=== PATIENT | male | born 1985 | race Hispanic/Latino ===

== ENCOUNTER 2021-02-08 06:29 | Emergency (ER) | payer SELFPAY ==
[2021-02-08] MEDS ORDERED: IBUPROFEN 200 MG TAB PO ONE (07:44)
[2021-02-08] MEDS ORDERED: LEVALBUTEROL 1.25 MG/3 ML NEB ONE (07:44)
[2021-02-08] MEDS ORDERED: dexAMETHasone 10 MG/ML VIAL ONE (07:44)
[2021-02-08] MEDS ORDERED: MAGNESIUM SULFATE 1 gm IVPB 1 GM/100 ML BAG IV ONE (07:44)
[2021-02-08 08:04] LABS: Absolute Lymphocytes (CBC) 0.8 K/uL (0.7-4.9); Basophils % 0.2 % (0-1.3); Hematocrit 41.7 % (39.6-49.0); Lymphocytes % 9.1 % (15.3-44.8); MPV 9.7 fL (7.6-11.3); RBC Red Blood Cell Count 4.91 M/uL (4.33-5.43)
[2021-02-08 08:11] LABS: BUN Blood Urea Nitrogen 11 mg/dL (7-18); Bicarbonate 28 mmol/L (21-32); Glucose Level 123 mg/dL (74-106); Potassium 3.9 mmol/L (3.5-5.1); Sodium Level 134 mmol/L (136-145)
--- NOTE | 2021-02-08 09:04 | RAD REPORT ---
EXAM DESCRIPTION: Devi Single View02/08/2021 8:42 am CLINICAL HISTORY: Shortness of breath COMPARISON: none FINDINGS: Moderate bilateral pulmonary opacities. Heart is normal size IMPRESSION: Moderate bilateral pulmonary opacities. This may indicate Covid pneumonia
--- NOTE | 2021-02-08 09:17 | ER ---
Nurse's Notes [facility] Name: Bhupendra Diaz Age: 35 yrs Sex: Male : 1985 Arrival Date: 02/08/2021 Time: 06:34 Bed 19 Private MD: Diagnosis: Coronavirus infection, unspecified Presentation: 02/08 06:42 Chief complaint: Patient states: he was diagnosed with COVID on Saturday but his bb symptoms are worsening with fever and coughing, pt doubling up when he coughs. Coronavirus screen: cough unrelated to allergies, fever, Client presents with at least one sign or symptom that may indicate coronavirus-19. Standard/surgical mask placed on the client. Client reports previous positive COVID test result. Ebola Screen: No symptoms or risks identified at this time. Initial Sepsis Screen: Does the patient meet any 2 criteria? RR > 20 per min. HR > 90 bpm. Yes Does the patient have a suspected source of infection? Yes: Productive cough/pneumonia. Risk Assessment: Do you want to hurt yourself or someone else? Patient reports no desire to harm self or others. Onset of symptoms was February 08, 2021. 06:42 Method Of Arrival: Ambulatory 06:42 Acuity: HILL 3 bb Triage Assessment: 07:20 General: Appears in no apparent distress. Behavior is calm, cooperative, appropriate ll1 for age. Pain: Denies pain. Neuro: No deficits noted. Cardiovascular: No deficits noted. Respiratory: Reports shortness of breath cough that is labored breathing Airway is patent Trachea midline Respiratory effort is even, labored, Respiratory pattern is symmetrical, tachypnea Breath sounds are diminished bilaterally. Onset: The symptoms/episode began/occurred 1 week, the patient has mild shortness of breath. GI: Bowel sounds present X 4 quads. Abd is soft and non tender X 4 quads. Reports diarrhea. Historical: - Allergies: 06:44 No Known Allergies; bb - Home Meds: 06:44 None [Active]; bb - PMHx: 06:44 COVID; bb - PSHx: 06:44 None; bb - Immunization history:: Adult Immunizations up to date. - Social history:: Smoking status: Patient denies any tobacco usage or history of. Patient uses alcohol, occasionally. Patient/guardian denies using street drugs. Screenin:11 Abuse screen: Denies threats or abuse. Nutritional screening: No deficits noted. ll1 Tuberculosis screening: No symptoms or risk factors identified. 07:52 Fall Risk IV access (20 points). Gait- Weak (10 pts.). Total Shah Fall Scale indicates ll1 Low Risk Score (25-44 pts). Fall prevention measures have been instituted. Side Rails Up X 2 Placed close to Nursing Station Frequent Obs/Assesments occuring Family Present and informed to notify staff if they need to leave bedside As available Patient and Family Educated on Fall Prevention Program and strategies. Assessment: 07:50 Reassessment: No changes from previously documented assessment. Patient and/or family ll1 updated on plan of care and expected duration. Pain level reassessed. Patient is alert, oriented x 3, equal unlabored respirations, skin warm/dry/pink. 08:50 Reassessment: No changes from previously documented assessment. Patient and/or family ll1 updated on plan of care and expected duration. Pain level reassessed. 09:50 Reassessment: No changes from previously documented assessment. Patient and/or family ll1 updated on plan of care and expected duration. Pain level reassessed. Patient is alert, oriented x 3, equal unlabored respirations, skin warm/dry/pink. Patient states feeling better. Patient states symptoms have improved. Vital Signs: 06:42 BP 126 / 79; Pulse 98; Resp 24 S; Temp 100.3(O); Pulse Ox 93% on R/A; Weight 79.38 kg bb (R); Height 5 ft. 6 in. (167.64 cm) (R); Pain 8/10; 07:40 BP 103 / 77; Pulse 96; Resp 22; Pulse Ox 94% on Nebulizer Mask; ll1 08:57 BP 119 / 69; Pulse 90; Resp 20; Temp 98.6; Pulse Ox 94% on R/A; ll1 10:00 BP 116 / 75; Pulse 88; Resp 20; Pulse Ox 97% on R/A; ll1 06:42 Body Mass Index 28.25 (79.38 kg, 167.64 cm) ED Course: 06:34 Patient arrived in ED. ag3 06:39 Lawrence Herrmann PA is PHCP. adenike 06:39 Franklin Suggs MD is Attending Physician. jmm 06:44 Triage completed. bb 06:44 Arm band placed on Patient placed in an exam room, on a stretcher, on pulse oximetry. bridgette Family accompanied patient. 07:00 Dwight Cortez, RN is Primary Nurse. ll1 07:20 Patient has correct armband on for positive identification. Bed in low position. Call ll1 light in reach. Side rails up X 1. Pulse ox on. NIBP on. mass spectroscopist on. 07:30 Inserted saline lock: 22 gauge in right antecubital area, using aseptic technique. ll1 Blood collected. 08:42 Chest Single View In Process Unspecified. EDMS 10:00 No provider procedures requiring assistance completed. IV discontinued, intact, ll1 bleeding controlled, No redness/swelling at site. Pressure dressing applied. Administered Medications: 07:35 Drug: Motrin (ibuprofen) 400 mg Route: PO; ll1 09:02 Follow up: Response: No adverse reaction ll1 07:36 Drug: Magnesium Sulfate 1 grams Route: IVPB; Infused Over: 1 hrs; Site: right ll1 antecubital; 08:05 Follow up: Response: No adverse reaction; IV Status: Completed infusion; IV Intake: ll1 100ml 07:38 Drug: Decadron - Dexamethasone 10 mg Route: IVP; Site: right antecubital; ll1 08:05 Follow up: Response: No adverse reaction ll1 07:40 Drug: Xopenex (levalbuterol) (3) 1.25 mg Route: Inhalation; ll1 09:02 Follow up: Response: No adverse reaction ll1 Intake: 08:05 IV: 100ml; Total: 100ml. ll1 Outcome: 09:16 Discharge ordered by . bettina 10:03 Patient left the ED. ll1 10:03 Discharged to home ambulatory. ll1 10:03 Condition: stable 10:03 Discharge instructions given to patient, family, Instructed on discharge instructions, follow up and referral plans. medication usage, Demonstrated understanding of instructions, follow-up care, medications, Prescriptions given X 3. Signatures: Dispatcher [employer] EDMS Lawrence Herrmann PA PA jmm Ballard, Brenda, RN RN Alyssa Sanchez Lynsay, GEMMA RN ll1
--- NOTE | 2021-02-08 09:17 | EDPHYS ---
Physician Documentation [facility] Name: Bhupendra Diaz Age: 35 yrs Sex: Male : 1985 Arrival Date: 02/08/2021 Time: 06:34 Bed 19 Private MD: ED Physician Franklin Suggs HPI: 02/08 07:18 This 35 yrs old Male presents to ER via Ambulatory with complaints of Covid +, jmm Breathing Difficulty. 07:18 Onset: The symptoms/episode began/occurred 1 week(s) ago. Modifying factors: The jmm symptoms are alleviated by nothing. the symptoms are aggravated by nothing. Associated signs and symptoms: Pertinent positives: chest pain, with cough, with breathing, fever. This is a 35-year-old male with no credible conditions presents emerged part with complaints of cough shortness of breath. Patient states he was diagnosed with COVID-19 approximately 1 week ago. Patient states that he does have some chest pain on deep inspiration. Patient is not currently taking steroids.. Historical: - Allergies: 06:44 No Known Allergies; bb - Home Meds: 06:44 None [Active]; bb - PMHx: 06:44 COVID; bb - PSHx: 06:44 None; bb - Immunization history:: Adult Immunizations up to date. - Social history:: Smoking status: Patient denies any tobacco usage or history of. Patient uses alcohol, occasionally. Patient/guardian denies using street drugs. ROS: 07:18 Constitutional: Positive for body aches, fever. jmm 07:18 Respiratory: Positive for cough, shortness of breath. 07:18 All other systems are negative. Exam: 07:18 Constitutional: This is a well developed, well nourished patient who is awake, alert, jmm and in no acute distress. Head/Face: atraumatic. Eyes: EOMI, no conjunctival erythema appreciated ENT: Moist Mucus Membranes Neck: Trachea midline, Supple Chest/axilla: Normal chest wall appearance and motion. Cardiovascular: Regular rate and rhythm. No edema appreciated Respiratory: Normal respirations, no respiratory distress appreciated Abdomen/GI: Non distended, soft Back: Normal ROM Skin: General appearance color normal MS/ Extremity: Moves all extremities, no obvious deformities appreciated, no edema noted to the lower extremities Neuro: Awake and alert, normal gait Psych: Behavior is normal, Mood is normal, Patient is cooperative and pleasant Vital Signs: 06:42 BP 126 / 79; Pulse 98; Resp 24 S; Temp 100.3(O); Pulse Ox 93% on R/A; Weight 79.38 kg bb (R); Height 5 ft. 6 in. (167.64 cm) (R); Pain 8/10; 07:40 BP 103 / 77; Pulse 96; Resp 22; Pulse Ox 94% on Nebulizer Mask; ll1 08:57 BP 119 / 69; Pulse 90; Resp 20; Temp 98.6; Pulse Ox 94% on R/A; ll1 10:00 BP 116 / 75; Pulse 88; Resp 20; Pulse Ox 97% on R/A; ll1 06:42 Body Mass Index 28.25 (79.38 kg, 167.64 cm) bb MDM: 07:17 Patient medically screened. [facility] 09:15 Data reviewed: vital signs, nurses notes. Counseling: I had a detailed discussion with bettina the patient and/or guardian regarding: the historical points, exam findings, and any diagnostic results supporting the discharge/admit diagnosis, lab results, radiology results, the need for outpatient follow up, to return to the emergency department if symptoms worsen or persist or if there are any questions or concerns that arise at home. ED course: Patient is alert nontoxic in appearance and emerged prior. Patient states feeling much better after intervention. Chest x-ray reveals COVID-19 type pneumonia. Vital signs appear within normal limits. Patient will be given a course of antibiotics and steroids and patient is otherwise given strict return precautions. Patient understood and agrees plan of care.. 02/08 08:05 Order name: CBC with Automated Diff; Complete Time: 08:08 EDNJ 02/08 08:12 Order name: Basic Metabolic Panel EDNJ 02/08 08:15 Order name: Chest Single View; Complete Time: 09:10 EDNJ 02/08 07:17 Order name: Saline Lock; Complete Time: 07:46 [facility] Administered Medications: 07:35 Drug: Motrin (ibuprofen) 400 mg Route: PO; 1 09:02 Follow up: Response: No adverse reaction 1 07:36 Drug: Magnesium Sulfate 1 grams Route: IVPB; Infused Over: 1 hrs; Site: right ll1 antecubital; 08:05 Follow up: Response: No adverse reaction; IV Status: Completed infusion; IV Intake: ll1 100ml 07:38 Drug: Decadron - Dexamethasone 10 mg Route: IVP; Site: right antecubital; 1 08:05 Follow up: Response: No adverse reaction 1 07:40 Drug: Xopenex (levalbuterol) (3) 1.25 mg Route: Inhalation; ll1 09:02 Follow up: Response: No adverse reaction ll1 Disposition: 23:17 Co-signature as Attending Physician, Franklin Suggs MD. rn Disposition Summary: 02/08/21 09:16 Discharge Ordered Location: Home [facility] Condition: Stable [facility] Diagnosis - Coronavirus infection, unspecified [facility] Followup: [facility] - With: Private Physician - When: 2 - 3 days - Reason: Recheck today's complaints, Continuance of care, Re-evaluation by your physician Discharge Instructions: - Discharge Summary Sheet [facility] - COVID-19 [facility] Forms: - Medication Reconciliation Form [facility] - Thank You Letter [facility] - Antibiotic Education [facility] - Prescription Opioid Use [facility] - Work release form ll1 Prescriptions: - albuterol sulfate 90 mcg/actuation Inhalation HFA aerosol inhaler - inhale 2 puff by INHALATION route every 4 hours; 1 Inhaler; Refills: 0, Product [facility] Selection Permitted - Prednisone 20 mg Oral Tablet - take 3 tablets by ORAL route once daily for 5 days; 15 tablet; Refills: 0, [facility] Product Selection Permitted - Zithromax Z-Paul 250 mg Oral Tablet - take 1 tablet by ORAL route as directed for 5 days Day 1 - take two (2) tablets [facility] one time. Day 2, 3, 4 , 5 take one (1) tablet once daily.; 6 tablet; Refills: 0, Product Selection Permitted Signatures: Dispatcher [employer] EDMS Lawrence Herrmann PA PA jmm Ballard, Brenda, RN RN bb Nieto, Roman, MD MD rn Lewis, Lynsay, RN RN ll1 Corrections: (The following items were deleted from the chart) 08:23 08:03 Chest Single View+[email or web address] ordered. EDMS EDMS
[2021-02-08 10:12] VITALS: O2SAT 94
[2021-02-08 10:14] VITALS: BP 119/69; TEMP 98.6
== END 2021-02-08 10:03 | disposition home or self-care (01) ==
LOC: ER 06:29
DX: U07.1 COVID-19 (principal)
CPT/HCPCS: 36415; 71045; 80048; 85025; 96365; 96375; 99285; J1100; J3475

== ENCOUNTER 2021-02-09 02:01 | Inpatient (IN) | payer SELFPAY ==
[2021-02-09 03:20] LABS: Absolute Lymphocytes (CBC) 0.6 K/uL (0.7-4.9); Basophils % 0.2 % (0-1.3); Lymphocytes % 7.4 % (15.3-44.8); MPV 9.9 fL (7.6-11.3); RBC Red Blood Cell Count 4.91 M/uL (4.33-5.43)
[2021-02-09 03:24] LABS: Protime INR 1.09
[2021-02-09] MEDS ORDERED: METHYLPREDNISOLONE 125 MG INJ ONE (03:44)
--- NOTE | 2021-02-09 04:16 | P.HP ---
Certification for Inpatient Patient admitted to: Inpatient With expected LOS: >2 Midnights Patient will require the following post-hospital care: None Practitioner: I am a practitioner with admitting privileges, knowledge of patient current condition, hospital course, and medical plan of care. Services: Services provided to patient in accordance with Admission requirements found in Title 42 Section 412.3 of the Code of Federal Regulations <[email or web address] - Last Filed: 02/09/21 04:14> Patient History Date of Service: 02/09/21 Primary Care Provider: None Reason for admission: COVID-19 pneumonia History of Present Illness: 35-year-old otherwise healthy male presents to the emergency department for cough, shortness of breath. Patient reports testing positive for coronavirus on 02/04, symptoms started 02/01. Patient steadily getting worse at home, noticed room air saturations in the 80s and came to the emergency department, upon arrival to the emergency room patient 76% on room air. Currently patient on nasal cannula tolerating 4 L per nasal cannula saturating around 92%. Work-up in the emergency department with blood cell count within normal limits D-dimer 592 CRP level pending. Patient given Solu-Medrol, Tessalon Perles in the emergency department, ED provider wishes to admit for further evaluation and management. 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 - Family History Father -: Diabetes, Cancer Mother -: Cancer - Social History Smoking Status: Never smoker Alcohol use: Yes CD- Drugs: No Caffeine use: No Place of Residence: Home <Matthew Quiros - Last Filed: 02/09/21 04:14> Date of Service: 02/09/21 <Bj Suggs - Last Filed: 02/09/21 13:50> Allergies No Known Allergies Allergy (Unverified 02/08/21 07:25) Review of Systems 10-point ROS is otherwise unremarkable General: Chills, Weakness Respiratory: Cough, Shortness of Breath, SOB with Excertion <Matthew Quiros - Last Filed: 02/09/21 04:14> Physical Examination - Physical Exam General: Alert, In no apparent distress, Oriented x3 HEENT: Atraumatic, PERRLA, Mucous membr. moist/pink, EOMI, Sclerae nonicteric Neck: Supple, 2+ carotid pulse no bruit, No LAD, Without JVD or thyroid abnormality Respiratory: Normal air movement, Diminished, Other (Dyspnea, tachypnea) Cardiovascular: Regular rate/rhythm, Normal S1 S2 Gastrointestinal: Normal bowel sounds, No tenderness Musculoskeletal: No tenderness Integumentary: No rashes Neurological: Normal gait, Normal speech, Normal strength at 5/5 x4 extr, Normal tone, Normal affect Lymphatics: No axilla or inguinal lymphadenopathy - Studies Laboratory Data (last 24 hrs) 02/09/21 02:56: PT 12.6 H, INR 1.09, APTT 29.1 02/09/21 02:56: WBC 8.50, Hgb 14.4, Hct 42.0, Plt Count 253 D <Matthew Quiros - Last Filed: 02/09/21 04:14> - Studies Laboratory Data (last 24 hrs) 02/09/21 02:56: PT 12.6 H, INR 1.09, APTT 29.1 02/09/21 02:56: WBC 8.50, Hgb 14.4, Hct 42.0, Plt Count 253 D 02/09/21 02:56: Sodium 136, Potassium 4.4, BUN 21 H, Creatinine 1.03, Glucose 144 H, Total Bilirubin 0.6, AST 39 H, ALT 67, Alkaline Phosphatase 110 <Bj Suggs - Last Filed: 02/09/21 13:50> Assessment and Plan - Plan Assessment: Acute hypoxic respiratory failure secondary to COVID-19 pneumonia Plan: Acute hypoxic respiratory failure secondary to COVID-19 pneumonia: Continue with IV steroids, oral supplements. Pulmonology consulted, supplemental oxygen as needed, daily room air saturations, room air saturations for home oxygen. Appreciate further input from pulmonology regarding additional therapies available for patient. DVT prophylaxis with Lovenox 40 g cutaneous once daily. As needed medications for cough. DVT PPX: Lovenox Code status: Full Discharge Plan: Home Plan to discharge in: Greater than 2 days - Advance Directives Does patient have a Living Will: No Does patient have a Durable POA for Healthcare: No - Code Status/Comfort Care Code Status Assessed: Yes (Full code) Critical Care: No Time Spent Managing Pts Care (In Minutes): 55 <Matthew Quiros - Last Filed: 02/09/21 04:14> - Plan Patient seen and examined this morning Breathing comfortably on 3 L nasal cannula. Feels like he has not had some improvement since he initially presented to the ER. Biggest improvement as he has not been having a severe coughing episodes as he was having at home. Significantly elevated inflammatory markers. Obtain daily room air sats If continues to improve, hopefully can be discharged home tomorrow, likely with home oxygen. <Bj Suggs - Last Filed: 02/09/21 13:50>
[2021-02-09] MEDS ORDERED: BENZONATATE 100 MG CAP PO ONE (04:19)
--- NOTE | 2021-02-09 04:26 | EDPHYS ---
Physician Documentation [facility] Name: Bhupendra Diaz Age: 35 yrs Sex: Male : 1985 Arrival Date: 02/09/2021 Time: 02:06 Bed 27 Private MD: ED Physician Franklin Suggs HPI: 02/09 02:36 This 35 yrs old Male presents to ER via Ambulatory with complaints of cp Breathing Difficulty. 02:36 The patient has shortness of breath at rest. Onset: The symptoms/episode began/occurred cp last week, and became worse today. Duration: The symptoms are continuous, and are steadily getting worse. Associated signs and symptoms: Pertinent positives: chest pain, Pertinent negatives: productive cough, fever. 02:36 Patient reports recently testing positive for COVID-19. cp Historical: - Allergies: 02:25 No Known Allergies; em - PMHx: 02:25 COVID; em - PSHx: 02:25 None; em - Immunization history:: Client reports having NOT received the Covid vaccine. - Social history:: Smoking status: Patient denies any tobacco usage or history of. ROS: 02:37 Eyes: Negative for injury, pain, redness, and discharge. cp 02:37 Constitutional: Negative for body aches, chills, fever, poor PO intake. 02:37 ENT: Negative for ear pain, difficulty swallowing, difficulty handling secretions. 02:37 Cardiovascular: Positive for chest pain. 02:37 Respiratory: Positive for cough, with no reported sputum, shortness of breath, at rest. 02:37 Abdomen/GI: Negative for abdominal pain, nausea, vomiting, and diarrhea. 02:37 Back: Positive for pain at rest, pain with movement. 02:37 Neuro: Negative for altered mental status, weakness. 02:37 All other systems are negative. Exam: 02:38 Head/Face: Normocephalic, atraumatic. cp 02:38 Constitutional: The patient appears alert, awake, non-diaphoretic, non-toxic, well developed, well nourished, in obvious distress, moderately distressed. 02:38 Eyes: Periorbital structures: appear normal, Conjunctiva: normal, no exudate, no injection, Sclera: no appreciated abnormality, Lids and lashes: appear normal, bilaterally. 02:38 ENT: External ear(s): are unremarkable, Nose: is normal, Mouth: Lips: moist, Oral mucosa: moist, Posterior pharynx: Airway: no evidence of obstruction, patent. 02:38 Neck: ROM/movement: is normal, is supple, no meningismus, no nuchal rigidity. 02:38 Chest/axilla: Inspection: normal, Palpation: is normal, no crepitus, no tenderness. 02:38 Cardiovascular: Rate: tachycardic, Rhythm: regular, Heart sounds: murmur, not appreciated, Edema: is not appreciated, JVD: is not appreciated. 02:38 Respiratory: moderate respiratory distress is noted, Respirations: labored breathing, that is moderate, shallow respirations, that is moderate, Breath sounds: decreased breath sounds, that are moderate, throughout, stridor, is not appreciated, wheezing: is not appreciated. 02:38 Abdomen/GI: Inspection: abdomen appears normal, Palpation: abdomen is soft and non-tender, in all quadrants. 02:38 Back: pain, that is moderate, of the left subscapular area and right subscapular area, ROM is normal. 02:38 Skin: no rash present. 03:38 ECG was reviewed by the Attending Physician. cp Vital Signs: 02:22 BP 123 / 78; Pulse 117; Resp 24; Temp 98.7; Pulse Ox 78% on R/A; Weight 79.38 kg; em Height 5 ft. 6 in. (167.64 cm); 02:31 Pulse Ox 94% on 4 lpm NC; em 02:22 Body Mass Index 28.25 (79.38 kg, 167.64 cm) em MDM: 02:31 Patient medically screened. rn 03:00 Differential diagnosis: pneumonia, pulmonary edema, Pulmonary Embolism Sepsis cp respiratory failure. 04:30 Data reviewed: vital signs, nurses notes, lab test result(s), EKG, radiologic studies, cp plain films. 04:30 Test interpretation: by ED physician or midlevel provider: ECG, chest xray shows cp bilateral pulmonary opacities. Counseling: I had a detailed discussion with the patient and/or guardian regarding: the historical points, exam findings, and any diagnostic results supporting the discharge/admit diagnosis, lab results, radiology results, the need for further work-up and treatment in the hospital. Physician consultation: Matthew HAMEED was contacted at 04:25, regarding admission, to the telemetry unit. patient's condition. 02/09 02:32 Order name: BMP rn 02/09 02:32 Order name: Blood Culture Adult (2) rn 02/09 02:32 Order name: C-Reactive Protein rn 02/09 02:32 Order name: CBC with Diff rn 02/09 02:32 Order name: D-Dimer 02/09 02:32 Order name: Ferritin; Complete Time: 16:35 02/09 02:32 Order name: LFT's; Complete Time: 16:35 02/09 02:32 Order name: Lactate; Complete Time: 03:45 02/09 02:32 Order name: PT-INR; Complete Time: 03:45 02/09 02:32 Order name: Procalcitonin; Complete Time: 16:35 02/09 02:32 Order name: Ptt, Activated; Complete Time: 03:45 02/09 02:32 Order name: Troponin (emerg Dept Use Only); Complete Time: 16:35 02/09 02:32 Order name: Basic Metabolic Panel; Complete Time: 16:35 EDIL 02/09 02:32 Order name: Blood Culture EDIL 02/09 02:32 Order name: CXR XRAY; Complete Time: 16:35 02/09 02:32 Order name: EKG; Complete Time: 02:33 02/09 02:32 Order name: Cardiac monitoring; Complete Time: 03:43 02/09 02:32 Order name: Droplet/Contact Precautions; Complete Time: 03:43 02/09 02:32 Order name: EKG - Nurse/Tech; Complete Time: 03:43 02/09 02:32 Order name: C-Reactive Protein; Complete Time: 16:35 EDIL 02/09 02:32 Order name: CBC with Automated Diff; Complete Time: 16:35 EDIL 02/09 03:48 Interpretation: Normal except: OTTO% 86.5; LYM% 7.4; PLT 253; LYMA 0.6. cp 02/09 02:32 Order name: D-Dimer; Complete Time: 03:45 EDIL 02/09 03:46 Interpretation: Abnormal: D-DIMER 592. cp 02/09 03:29 Order name: Manual Differential; Complete Time: 16:35 EDIL 02/09 03:48 Order name: CT Chest For PE Angio cp 02/09 12:56 Order name: CT [facility] 02/09 13:30 Order name: Urinalysis; Complete Time: 16:35 [facility] 02/09 13:36 Order name: Urine Microscopic Only; Complete Time: 16:35 [facility] 02/09 02:32 Order name: IV Start; Complete Time: 03:03 rn 02/09 02:32 Order name: Labs collected and sent; Complete Time: 03:03 rn 02/09 02:32 Order name: O2 Per Protocol; Complete Time: 03:44 rn 02/09 02:32 Order name: O2 Sat Monitoring; Complete Time: 03:44 rn EC:38 Rate is 98 beats/min. Rhythm is regular. NE interval is normal. QRS interval is normal. cp QT interval is normal. T waves are Inverted in lead aVR. Interpreted by me. Reviewed by me. Administered Medications: 03:43 Drug: SOLU-Medrol (methylPrednisoLONE) 125 mg Route: IVP; Site: left antecubital; bs2 04:00 Follow up: Response: No adverse reaction bs2 04:00 Drug: Tessalon Perle (benzonatate) 100 mg Route: PO; bs2 04:37 Drug: NS 0.9% 1000 ml Route: IV; Rate: 1 bolus; Site: left antecubital; bs2 Disposition Summary: 02/09/21 04:25 Hospitalization Ordered Hospitalization Status: Inpatient Admission cp Provider: Bj Suggs cp Condition: Stable cp Problem: new cp Symptoms: have improved cp Bed/Room Type: Standard Location: Intensive Care Unit(02/09/21 14:42) [facility] Room Assignment: 8-(02/09/21 14:42) [facility] Diagnosis - Pneumonia due to other specified infectious organisms cp - Hypoxemia cp Forms: - Medication Reconciliation Form cp - SBAR form cp Addendum: 02/13/2021 07:03 Co-signature as Attending Physician, Franklin Suggs MD I agree with the assessment and r n plan of care. Attestation: The patient's history, exam findings, diagnostics, and a summary of any interventions or procedures was reviewed in detail with Forrest BROWNLEE. Signatures: Dispatcher [employer] Jose David Story RN RN em Nieto, Roman, MD MD rn Lasagna Shamika, RN RN tl1 Forrest Méndez PA PA cp Greg Ricketts RN RN ja1 Pauline Ellis RN RN bs2 Corrections: (The following items were deleted from the chart) 02/09 03:48 03:46 Normal except: OTTO% 86.5; LYM% 7.4; PLT 253. cp cp 04:38 04:25 Telemetry/MedSurg (Inpatient) cp tl1 04:38 04:25 cp tl1 14:42 04:38 [facility] ER HOLD tl1 ja1 14:42 04:38 ERHOLD- tl1 ja1
--- NOTE | 2021-02-09 04:26 | ER ---
Nurse's Notes [facility] Name: Bhupendra Diaz Age: 35 yrs Sex: Male : 1985 Arrival Date: 02/09/2021 Time: 02:06 Bed 27 Private MD: Diagnosis: Pneumonia due to other specified infectious organisms;Hypoxemia Presentation: 02/09 02:22 Chief complaint: Patient states: covid positive, was having coughing spell and O2 88% em at home, took breathing treatment [employer]. Coronavirus screen: Client presents with at least one sign or symptom that may indicate coronavirus-19. Standard/surgical mask placed on the client. Provider contacted for isolation considerations. Client reports previous positive COVID test result. Ebola Screen: Patient negative for fever greater than or equal to 101.5 degrees Fahrenheit, and additional compatible Ebola Virus Disease symptoms Patient denies exposure to infectious person. Patient denies travel to an Ebola-affected area in the 21 days before illness onset. No symptoms or risks identified at this time. Initial Sepsis Screen: Does the patient meet any 2 criteria? HR > 90 bpm. Does the patient have a suspected source of infection? Yes: Productive cough/pneumonia. Risk Assessment: Do you want to hurt yourself or someone else? Patient reports no desire to harm self or others. Onset of symptoms was February 09, 2021. 02:22 Method Of Arrival: Ambulatory em 02:22 Acuity: HILL 2 em Historical: - Allergies: 02:25 No Known Allergies; em - PMHx: 02:25 COVID; em - PSHx: 02:25 None; em - Immunization history:: Client reports having NOT received the Covid vaccine. - Social history:: Smoking status: Patient denies any tobacco usage or history of. Screenin:46 Abuse screen: Denies threats or abuse. Denies injuries from another. Nutritional bs2 screening: No deficits noted. Tuberculosis screening: No symptoms or risk factors identified. Fall Risk None identified. Assessment: 03:46 General: Appears distressed, uncomfortable, slender, well groomed, well developed, well bs2 nourished, Behavior is calm, cooperative, appropriate for age. Pain: Complains of pain in back. Neuro: No deficits noted. Cardiovascular: No deficits noted. Rhythm is sinus tachycardia. Respiratory: Airway is patent Respiratory effort is labored, with nasal flaring, Respiratory pattern is regular, symmetrical, tachypnea. Respiratory: Breath sounds are diminished bilaterally. Onset: The symptoms/episode began/occurred gradually, the patient has moderate shortness of breath Parent/caregiver reports the patient having shortness of breath at rest cough that is non-productive, dry, persistent labored breathing since gradually worse since Saturday and today pt was unable to even shower with out severe cough and SOB pain with respiration pain with cough pain with movement. GI: No signs and/or symptoms were reported involving the gastrointestinal system. : No signs and/or symptoms were reported regarding the genitourinary system. EENT: No signs and/or symptoms were reported regarding the EENT system. Derm: No signs and/or symptoms reported regarding the dermatologic system. Musculoskeletal: No signs and/or symptoms reported regarding the musculoskeletal system. Vital Signs: 02:22 BP 123 / 78; Pulse 117; Resp 24; Temp 98.7; Pulse Ox 78% on R/A; Weight 79.38 kg; em Height 5 ft. 6 in. (167.64 cm); 02:31 Pulse Ox 94% on 4 lpm NC; em 02:22 Body Mass Index 28.25 (79.38 kg, 167.64 cm) em ED Course: 02:06 Patient arrived in ED. es 02:25 Triage completed. em 02:25 Arm band placed on. em 02:30 Franklin Suggs MD is Attending Physician. rn 02:35 Forrest Méndez PA is PHCP. cp 02:47 Pauline Ellis, RN is Primary Nurse. bs2 03:02 Inserted saline lock: 20 gauge in left antecubital area, using aseptic technique. Blood jb5 collected. 03:02 CBC with Automated Diff Sent. jb5 03:02 D-Dimer Sent. jb5 03:02 C-Reactive Protein Sent. jb5 03:02 Blood Culture Sent. jb5 03:02 Basic Metabolic Panel Sent. jb5 03:03 BMP Sent. jb5 03:03 Blood Culture Adult (2) Sent. jb5 03:03 C-Reactive Protein Sent. jb5 03:03 CBC with Diff Sent. jb5 03:03 D-Dimer Sent. jb5 03:43 CXR XRAY Sent. bs2 03:44 Ferritin Sent. bs2 03:44 LFT's Sent. bs2 03:44 Procalcitonin Sent. bs2 03:44 Troponin (emerg Dept Use Only) Sent. bs2 03:44 Basic Metabolic Panel Sent. bs2 03:44 Blood Culture Sent. bs2 03:44 C-Reactive Protein Sent. bs2 03:44 Manual Differential Sent. bs2 03:46 Patient has correct armband on for positive identification. Bed in low position. Call bs2 light in reach. Side rails up X 1. feed inspection supervisor on. Pulse ox on. NIBP on. Warm blanket given. 03:46 No provider procedures requiring assistance completed. bs2 04:13 CXR XRAY In Process Unspecified. EDMS 04:24 Bj Suggs MD is Hospitalizing Provider. cp 06:19 Primary Nurse role handed off by Pauline Ellis, GEMMA mw2 06:57 Jose David Cai, RN is Primary Nurse. em Administered Medications: 03:43 Drug: SOLU-Medrol (methylPrednisoLONE) 125 mg Route: IVP; Site: left antecubital; bs2 04:00 Follow up: Response: No adverse reaction bs2 04:00 Drug: Tessalon Perle (benzonatate) 100 mg Route: PO; bs2 04:37 Drug: NS 0.9% 1000 ml Route: IV; Rate: 1 bolus; Site: left antecubital; bs2 Outcome: 04:25 Decision to Hospitalize by Provider. cp 15:39 Patient left the ED. [facility] Signatures: Dispatcher [employer] Kathy Borja Edgar, RN RN Franklin Suggs MD MD rn Page, Corey, PA PA cp Martinez, Maria 5 Maribel Huang Maxwell [place] 2 Pauline Ellis RN RN bs2
[2021-02-09 04:31] LABS: Blood Morphology Comment NOT SEEN (NOT SEEN); Platelet Estimate ADEQ
[2021-02-09 04:35] LABS: ALT/SGPT 67 U/L (12-78); AST/SGOT 39 U/L (15-37); Albumin 3.2 g/dL (3.4-5.0); Alkaline Phosphatase 110 U/L (45-117); BUN Blood Urea Nitrogen 21 mg/dL (7-18); Bicarbonate 29 mmol/L (21-32); Bilirubin Direct 0.2 mg/dL (0-0.2); Bilirubin Total 0.6 mg/dL (0.2-1.0); Ferritin 2883.4 ng/mL (26-388); Glucose Level 144 mg/dL (74-106); Potassium 4.4 mmol/L (3.5-5.1); Protein, Total 8.4 g/dL (6.4-8.2); Sodium Level 136 mmol/L (136-145); Troponin (Emerg Dept Use Only) < 0.02 ng/mL (0.0-0.045)
[2021-02-09] MEDS ORDERED: NA CHLORIDE 0.9% 1,000 ML ONE (04:54)
[2021-02-09] MEDS ORDERED: MELATONIN 5 MG TABLET PO PRN (05:07)
[2021-02-09] MEDS ORDERED: ACETAMINOPHEN 500 MG TAB PO PRN (05:07)
[2021-02-09] MEDS ORDERED: ONDANSETRON 4 MG/2 ML VIAL IV PRN (05:07)
[2021-02-09] MEDS ORDERED: BENZONATATE 100 MG CAP PO PRN (05:07)
[2021-02-09 07:04] VITALS: BMI 28.2
--- NOTE | 2021-02-09 07:14 | RAD REPORT ---
EXAM DESCRIPTION: RAD - Chest Single View - 02/09/2021 4:13 am CLINICAL HISTORY: COVID;Cough;Dyspnea COMPARISON: Chest Single View dated 02/08/2021; Chest For Pe Angio dated 02/09/2021 FINDINGS: Scattered patchy airspace opacities which is similar to 02/08/2021. Heart size is borderli ne enlarged.No acute osseous abnormality. No significant pleural effusions or pneumothorax. IMPRESSION: Patchy bilateral airspace disease concerning for multifocal pneumonia which is unchanged since 02/08/2021.
[2021-02-09] MEDS: VITAMIN D 1000 UNIT TAB PO SCH (08:08)
[2021-02-09] MEDS: THIAMINE HCL 100 MG TABLET PO SCH (08:08)
[2021-02-09] MEDS: ZINC SULFATE 220 MG CAP PO SCH (08:09)
[2021-02-09] MEDS: ASPIRIN EC 81 MG TAB PO SCH (08:09)
[2021-02-09] MEDS: ASCORBIC ACID 500 MG TABLET PO SCH ×4 (08:09→20:59)
[2021-02-09] MEDS: METHYLPREDNISOLONE 40 MG INJ IV SCH ×2 (08:09→20:59)
[2021-02-09] MEDS: ENOXAPARIN 40 MG/0.4 ML SQ SCH (08:09)
[2021-02-09] MEDS ORDERED: ZINC SULFATE 220 MG CAP ONE (08:14)
[2021-02-09] MEDS ORDERED: THIAMINE HCL 100 MG TABLET ONE ×2 (08:16→08:34)
[2021-02-09] MEDS ORDERED: VITAMIN D 1000 UNIT TAB ONE (08:16)
[2021-02-09] MEDS ORDERED: ASPIRIN EC 81 MG TAB PO ONE (08:16)
[2021-02-09] MEDS ORDERED: ASCORBIC ACID 500 MG TABLET ONE ×2 (08:16→11:55)
[2021-02-09] MEDS ORDERED: METHYLPREDNISOLONE 40 MG INJ ONE (08:17)
[2021-02-09] MEDS ORDERED: ENOXAPARIN 40 MG/0.4 ML SQ ONE (08:17)
[2021-02-09] MEDS ORDERED: IVERMECTIN 3 MG TABLET PO SCH (09:00)
--- NOTE | 2021-02-09 10:59 | EKG ---
Test Date: 2021-02-09 Test Time: 03:30:30 Microelectronics Technician: ANDREE MEASUREMENT RESULTS: Intervals: Rate: 98 GA: 190 QRSD: 88 QT: 336 QTc: 428 [place]: P: 53 GA: 190 QRS: 34 T: 17 INTERPRETIVE STATEMENTS: Normal sinus rhythm Normal ECG No previous ECG available for comparison Electronically Signed On 02-09-21 10:58:16 CDT by Roly Neal
--- NOTE | 2021-02-09 12:55 | RAD REPORT ---
EXAM DESCRIPTION: CT - Chest For Pe Angio - 02/09/2021 6:43 am CLINICAL HISTORY: CHEST PAIN TECHNIQUE: Axial computed tomographic angiography images of the chest with intravenous contrast. S agittal and coronal reformatted images were created and reviewed. This CT exam was performed using one or more of the following dose reduction techniques: automated exposure control, adjustment of t he mA and/or kV according to patient size, and/or use of iterative reconstruction technique. MIP re constructed images were created and reviewed. COMPARISON: No relevant prior studies available. FINDINGS: Limitations: Significant motion artifact limits assessment for pulmonary emboli. Pulmonary arteries: No central or proximal pulmonary embolus. Small lower lobe pulmonary emboli difficult to exclude due to artifact. Aorta: No acute change noted. No thoracic aortic aneurysm. Lungs: Extensive groundglass infiltrates identified throughout all lobes of both lungs with super imposed confluent consolidation in the lower lobes. Pleural space: No abnormality noted. No significant effusion. No pneumothorax. Heart: No abnormality noted. No cardiomegaly. No significant pericardial effusion. No evide nce of RV dysfunction. Bones/joints: No acute fracture. No dislocation. Soft tissues: No abnormality noted. Lymph nodes: No abnormality noted. No enlarged lymph nodes. IMPRESSION: 1. Multifocal pneumonia with imaging characteristics suggestive of Covid. Correlate clinically. Other infectious etiologies not excluded. 2. No evident pulmonary emboli allowing for significant lower lung zone motion artifact. Electronically signed by: Ashley Bowers MD 02/09/2021 5:41 AM CDT Due to temporary technical issues with the PACS/Fluency reporting system, reports are being signed by the in house radiologists without review as a courtesy to insure prompt reporting. The interpreting radiologist is fully responsible for the content of the report.
[2021-02-09 13:28] LABS: Urine Appearance CLEAR (Clear); Urine Bilirubin NEGATIVE (Negative); Urine Blood NEGATIVE (Negative); Urine Color YELLOW (Yellow); Urine Glucose NEGATIVE (Negative); Urine Protein 2+ (Negative); Urine Specific Gravity >=1.030 (1.005-1.030); Urine pH 5.5 (5.0-7.0)
[2021-02-09 13:30] LABS: Urine Microscopic Reflex ORDER UMIC
[2021-02-09 13:35] LABS: Urine Bacteria NONE SEEN /HPF (NONE SEEN); Urine RBC NONE SEEN /HPF (NONE SEEN)
[2021-02-10 05:28] LABS: Absolute Lymphocytes (CBC) 0.9 K/uL (0.7-4.9); Basophils % 0.1 % (0-1.3); Hematocrit 40.2 % (39.6-49.0); Lymphocytes % 6.1 % (15.3-44.8); MPV 9.2 fL (7.6-11.3); RBC Red Blood Cell Count 4.69 M/uL (4.33-5.43)
[2021-02-10 05:52] LABS: ALT/SGPT 68 U/L (12-78); AST/SGOT 40 U/L (15-37); Albumin 2.8 g/dL (3.4-5.0); Alkaline Phosphatase 97 U/L (45-117); BUN Blood Urea Nitrogen 21 mg/dL (7-18); Bicarbonate 31 mmol/L (21-32); Bilirubin Total 0.5 mg/dL (0.2-1.0); Ferritin 1919.9 ng/mL (26-388); Glucose Level 148 mg/dL (74-106); Potassium 4.4 mmol/L (3.5-5.1); Protein, Total 7.2 g/dL (6.4-8.2); Sodium Level 135 mmol/L (136-145)
[2021-02-10] MEDS: ENOXAPARIN 40 MG/0.4 ML SQ SCH (07:43)
[2021-02-10] MEDS: VITAMIN D 1000 UNIT TAB PO SCH (07:44)
[2021-02-10] MEDS: ASPIRIN EC 81 MG TAB PO SCH (07:44)
[2021-02-10] MEDS: ASCORBIC ACID 500 MG TABLET PO SCH ×3 (07:44→16:08)
[2021-02-10] MEDS: THIAMINE HCL 100 MG TABLET PO SCH (07:44)
[2021-02-10] MEDS: ZINC SULFATE 220 MG CAP PO SCH (07:45)
[2021-02-10] MEDS: METHYLPREDNISOLONE 40 MG INJ IV SCH (07:45)
--- NOTE | 2021-02-10 10:14 | P.CNS ---
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 Doign well/ On NC O2/ plan for discharge on pred and Aspirin/ Labs andCT reviewed
--- NOTE | 2021-02-10 12:27 | P.DS ---
Admission Date: 02/09/21 Discharge Date: 02/10/21 Primary Care Provider: None Disposition: ROUTINE DISCHARGE Discharge Condition: GOOD Reason for Admission: COVID-19 pneumonia Consultations: Pulm - Dr. Neal Procedures: CTA chest (02/09): IMPRESSION: 1. Multifocal pneumonia with imaging characteristics suggestive of Covid. Correlate clinically. Other infectious etiologies not excluded. 2. No evident pulmonary emboli allowing for significant lower lung zone motion artifact. Problem List Acute hypoxic respiratory failure secondary to COVID-19 pneumonia Brief History of Present Illness: 35-year-old otherwise healthy male presents to the emergency department for cough, shortness of breath. Patient reports testing positive for coronavirus on 02/04, symptoms started 02/01. Patient steadily getting worse at home, noticed room air saturations in the 80s and came to the emergency department, upon arrival to the emergency room patient 76% on room air. Currently patient on nasal cannula tolerating 4 L per nasal cannula saturating around 92%. Work-up in the emergency department with blood cell count within normal limits D-dimer 592 Hospital Course: Patient was admitted and treated for COVID-19 pneumonia. His ferritin and CRP were significantly elevated on admission at 2800 155. He had significant improvement in his symptoms and inflammatory markers. He was breathing more comfortably on 2 L nasal cannula and able to ambulate around his room. He was set up with home oxygen and subsequently discharged home to continue 2-week taper of prednisone, vitamin supplementation, and to follow-up with pulmonology in approximately 1 week. Vital Signs/Physical Exam: Temp Pulse Resp BP Pulse Ox 96.6 F L 92 H 29 H 142/87 H 95 02/10/21 08:00 02/10/21 08:00 02/10/21 08:00 02/10/21 08:00 02/10/21 08:00 General: Alert, In no apparent distress, Oriented x3 HEENT: Sclerae nonicteric Respiratory: Diminished, Other (nonlabored on 2 LNC) Cardiovascular: No edema, Regular rate/rhythm, Normal S1 S2 Gastrointestinal: Soft and benign, Non-distended, No tenderness Musculoskeletal: No erythema, No tenderness Integumentary: No rashes, No significant lesion Neurological: Normal speech, Normal strength at 5/5 x4 extr Laboratory Data at Discharge: WBC 14.40 K/uL (4.3-10.9) H D 02/10/21 04:49 Hgb 13.8 g/dL (13.6-17.9) 02/10/21 04:49 Hct 40.2 % (39.6-49.0) 02/10/21 04:49 Plt Count 319 K/uL (152-406) D 02/10/21 04:49 PT 12.6 SECONDS (9.5-12.5) H 02/09/21 02:56 INR 1.09 02/09/21 02:56 APTT 29.1 SECONDS (24.3-36.9) 02/09/21 02:56 Sodium 135 mmol/L (136-145) L 02/10/21 04:49 Potassium 4.4 mmol/L (3.5-5.1) 02/10/21 04:49 BUN 21 mg/dL (7-18) H 02/10/21 04:49 Creatinine 0.86 mg/dL (0.55-1.3) 02/10/21 04:49 Glucose 148 mg/dL (74-106) H 02/10/21 04:49 Total Bilirubin 0.5 mg/dL (0.2-1.0) 02/10/21 04:49 AST 40 U/L (15-37) H 02/10/21 04:49 ALT 68 U/L (12-78) 02/10/21 04:49 Alkaline Phosphatase 97 U/L (45-117) 02/10/21 04:49 Home Medications: Ascorbic Acid [Vitamin C*] 500 mg PO QID 30 Days #120 tablet 02/10/21 Aspirin 325 mg PO DAILY 30 Days #30 tablet 02/10/21 Benzonatate [Tessalon Perle*] 100 mg PO TID PRN 7 Days #21 cap 02/10/21 Cholecalciferol (Vitamin D3) [Vitamin D 1000 Iu Tab*] 4,000 unit PO DAILY 30 Days #120 tab 02/10/21 Thiamine HCl [Vitamin B-1*] 200 mg PO DAILY 30 Days #60 tablet 02/10/21 Zinc Sulfate [Zinc Sulfate*] 220 mg PO DAILY 30 Days #30 cap 02/10/21 predniSONE [Prednisone] 20 mg PO SEECOM 14 Days #21 tablet 02/10/21 New Medications: Aspirin 325 mg PO DAILY 30 Days #30 tablet predniSONE [Prednisone] 20 mg PO SEECOM 14 Days #21 tablet Benzonatate [Tessalon Perle*] 100 mg PO TID PRN 7 Days #21 cap PRN Reason: Cough Thiamine HCl [Vitamin B-1*] 200 mg PO DAILY 30 Days #60 tablet Ascorbic Acid [Vitamin C*] 500 mg PO QID 30 Days #120 tablet Cholecalciferol (Vitamin D3) [Vitamin D 1000 Iu Tab*] 4,000 unit PO DAILY 30 Days #120 tab Zinc Sulfate [Zinc Sulfate*] 220 mg PO DAILY 30 Days #30 cap Physician Discharge Instructions: You were found to have COVID-19 pneumonia. You are sent home with steroids, vitamin supplementation, and oxygen supplementation. You will be expected to be short of breath and oxygen level drop when walking. Do not overdo things, and take it easy as you slowly get better. Follow up with Dr. Neal in ~1 week. Call his office to schedule telephone/video appointment Diet: Regular Activity: Ad ernesto Followup: Ritesh Nela MD [ACTIVE - CAN ADMIT] - 1 Week (CAll to schedule an inocente ointment) NONE,NONE [Primary Care Provider] - 1-2 Weeks (CAll to schedule an appointment) Time spent managing pt's care (in minutes): 45
[2021-02-10 16:33] VITALS: O2SAT 95
[2021-02-10 17:16] VITALS: BP 125/80; TEMP 97.6
== END 2021-02-10 17:00 | disposition home or self-care (01) | DRG 177 ==
LOC: ER 02:01 → ERHOLD 04:17 → 3RD-ICU 15:20
PROVIDERS: ADMIT Hospitalist; ATTEND Hospitalist
DX: U07.1 COVID-19 (principal); J12.82 Pneumonia due to coronavirus disease 2019; J96.01 Acute respiratory failure with hypoxia; Z60.2 Problems related to living alone; Z79.82 Long term (current) use of aspirin; Z79.52 Long term (current) use of systemic steroids; Z79.899 Other long term (current) drug therapy
CPT/HCPCS: 36415; 71045; 71275; 80048; 80053; 80076; 81003; 81015; 82728; 83605; 84145; 84484; 85025; 85379; 85610; 85730; 86140; 87040; 93005; 94760; 96374; 99284; J1650; J2920; J2930; J7030; Q9967